=== PATIENT | female | born 1955 | race Caucasian/White ===

== ENCOUNTER 2022-03-08 09:07 | Emergency (ER) | payer MEDICARE ==
[2022-03-08 10:08] LABS: HEMOGLOBIN 15.1 gm/dl (12.3-15.3); RED BLOOD COUNT 4.45 M/UL (4.00-5.10)
[2022-03-08 10:27] LABS: BUN/CREATININE RATIO 25 (0-10)
== END 2022-03-08 14:07 | disposition short-term general hospital (02) ==
LOC: ER1 09:07
PROVIDERS: Emergency Medicine
DX: M54.50 Low back pain, unspecified (principal); Z90.49 Acquired absence of other specified parts of digestive tract
CPT/HCPCS: 72132; 72170; 80053; 85025; 85652; 86140; 87040; 96374; 96375; 99285; J1170; J2270; J2405; Q9967